=== PATIENT | male | born 1980 | race Caucasian/White ===

== ENCOUNTER 2020-01-22 20:40 | Outpatient (REF) | payer MEDICAID, SELFPAY ==
[2020-01-22 20:24] LABS: Calculated LDL 90 mg/dL (<100); Cholesterol 154 mg/dL (<200); HDL Cholesterol 50 mg/dL (40-60); TSH (W/Ref FT4) 0.61 uIU/mL (0.36-3.74); Triglyceride 70 mg/dL (<150)
[2020-01-22 20:25] LABS: Hemoglobin A1C 5.5 % (3.8-5.6)
[2020-01-24 09:34] LABS: Hepatitis B Surface Ag Negative (Negative)
[2020-01-24 09:54] LABS: Hepatitis C Ab w Rflx HCV PCR Reactive (Negative)
[2020-01-24 10:43] LABS: HIV-1/2 Ag & Ab Screen Negative (Negative)
[2020-01-27 14:51] LABS: HCV RNA Detection Quantitative 204 IU/mL (Undetected); HCV RNA Qualitative Detected (Undetected)
== END 2020-01-22 21:00 ==
LOC: NCHCN 20:40
PROVIDERS: PCP General Practice; Visit Provider Family Medicine
DX: Z86.39 Personal history of other endocrine, nutritional and metabolic disease (principal); Z11.59 Encounter for screening for other viral diseases; Z11.4 Encounter for screening for human immunodeficiency virus [HIV]; Z13.1 Encounter for screening for diabetes mellitus; Z13.220 Encounter for screening for lipoid disorders
CPT/HCPCS: 80061; 86803; 87340; 87389; 87522; 83036; 84443

== ENCOUNTER 2020-03-11 17:46 | Outpatient (REF) | payer MEDICAID, SELFPAY ==
[2020-03-11 18:54] LABS: HCT 41.1 % (40.0-50.0); HGB 13.4 g/dL (13.5-17.5); Mean Corp. HGB Concentration 32.6 g/dL (32.0-36.0); Mean Corpuscular Hemoglobin 29.6 pg (27.0-33.0); Mean Corpuscular Volume 90.9 fL (80-95); Mean Platelet Volume 11.8 fL (8.0-11.0); Platelet Count 203 x1000/uL (130-400); RBC 4.52 m/cumm (4.50-6.00); RBC Distribution Width 12.1 % (11.8-14.1)
[2020-03-11 19:12] LABS: ALT 59 U/L (16-63); AST 29 U/L (15-37); Albumin 4.6 g/dL (3.4-5.0); Alkaline Phosphatase 54 U/L (46-116); Anion Gap 8.9 mmol/L (3-11); BUN 12 mg/dL (7-18); Bilirubin, Total 0.2 mg/dL (0.2-1.0); CO2 28.1 mmol/L (21.0-32.0); CREATININE 0.97 mg/dL (0.70-1.30); Calcium 9.5 mg/dL (8.5-10.1); Chloride 102 mmol/L (98-107); Glucose 81 mg/dL (74-106); Potassium 4.2 mmol/L (3.5-5.1); Sodium 139 mmol/L (136-145); Total Protein 7.4 g/dL (6.4-8.2)
[2020-03-13 09:16] LABS: HBs Antibody, Quant 23.3 mIU/mL (See Note); Hepatitis B Surface Ab Positive (See Note)
[2020-03-13 10:19] LABS: Hep B Core Antibody Negative (Negative)
[2020-03-13 10:24] LABS: Hep A Total Ab w Rflx IgM Positive (Negative)
[2020-03-17 11:59] LABS: Hep A Antibody IgM Negative (Negative)
[2020-03-17 22:32] LABS: HCV Genotype 1 (Undetected)
== END 2020-03-11 18:06 ==
LOC: NCHCN 17:46
PROVIDERS: PCP General Practice; Visit Provider Family Medicine
DX: B18.2 Chronic viral hepatitis C (principal)
CPT/HCPCS: 80053; 85027; 86704; 86706; 86709; 87521

== ENCOUNTER 2020-08-05 10:14 | Outpatient (REF) | payer MEDICAID, SELFPAY ==
[2020-08-05 20:04] LABS: ALT 25 U/L (16-63); AST 18 U/L (15-37); Albumin 4.2 g/dL (3.4-5.0); Alkaline Phosphatase 71 U/L (46-116); Bilirubin, Total 0.4 mg/dL (0.2-1.0)
[2020-08-07 13:49] LABS: HCV RNA Qualitative Undetected (Undetected)
== END 2020-08-05 10:34 ==
LOC: NCHCN 10:14
PROVIDERS: PCP General Practice; Visit Provider Family Medicine
DX: B18.2 Chronic viral hepatitis C (principal)
CPT/HCPCS: 80076; 87522

== ENCOUNTER 2020-09-09 16:51 | Outpatient (REF) | payer MEDICAID, SELFPAY ==
[2020-09-11 12:56] LABS: HCV RNA Qualitative Undetected (Undetected)
== END 2020-09-09 17:11 ==
LOC: NCHCN 16:51
PROVIDERS: PCP Family Medicine; Visit Provider Family Medicine
DX: B18.2 Chronic viral hepatitis C (principal)
CPT/HCPCS: 87522

== ENCOUNTER 2021-01-27 20:24 | Outpatient (REF) | payer MEDICAID, SELFPAY ==
[2021-01-28 15:17] LABS: HCV RNA Qualitative Undetected (Undetected)
== END 2021-01-27 20:25 | disposition home or self-care (01) ==
LOC: NCHCN 20:24
PROVIDERS: PCP Family Medicine; Visit Provider Family Medicine
DX: B18.2 Chronic viral hepatitis C (principal)
CPT/HCPCS: 87522

== ENCOUNTER 2022-01-05 12:54 | Outpatient (REF) | payer MEDICAID, SELFPAY ==
[2022-01-12 03:14] LABS: Fentanyl Interpretation Negative.; Fentanyl by LC-MS/MS Negative; Norfentanyl by LC-MS/MS Negative
== END 2022-01-05 12:55 | disposition home or self-care (01) ==
LOC: NCHCN 12:54
PROVIDERS: PCP Family Medicine; Visit Provider Family Medicine
DX: F11.20 Opioid dependence, uncomplicated (principal)
CPT/HCPCS: 80354

== ENCOUNTER 2022-01-19 13:52 | Outpatient (REF) | payer MEDICAID, SELFPAY ==
[2022-01-25 10:17] LABS: Cocaine 143 ng/mL (Cutoff: 50); Cocaine Interpretation Positive.
[2022-01-27 14:39] LABS: Fentanyl Interpretation Negative.; Fentanyl by LC-MS/MS Negative; Norfentanyl by LC-MS/MS Negative
== END 2022-01-19 13:53 | disposition home or self-care (01) ==
LOC: NCHCN 13:52
PROVIDERS: PCP Family Medicine; Visit Provider Family Medicine
DX: F11.20 Opioid dependence, uncomplicated (principal)
CPT/HCPCS: 80353; 80354; 82520

== ENCOUNTER 2023-08-10 15:13 | Outpatient (CLI) | payer MEDICAID, SELFPAY ==
[2023-08-10 12:57] LABS: Abs Immature Grans 0.02 10^3/uL (0.0-0.06); Absolute Basophil Count 0.04 10^3/uL (0.0-0.2); Absolute Eosinophil Count 0.16 10^3/uL (0.0-0.7); Absolute Lymphocyte Count 1.52 10^3/uL (1.2-3.4); Absolute Monocyte Count 0.55 10^3/uL (0.1-0.8); Absolute Neutrophil Count 4.39 10^3/uL (1.2-6.7); Basophils % 0.6; Eosinophils % 2.4; HCT 37.3 % (40.0-50.0); HGB 12.4 g/dL (13.5-17.5); Immature Grans % 0.3; Lymphocytes % 22.8; MCH 28.8 pg (27.0-33.0); MCHC 33.2 % (32.0-36.0); MCV 87 fL (80-95); MPV 10.6 fL (8.0-11.0); Monocytes % 8.2; Neutrophils % 65.7; Platelet Count 240 10^3/uL (130-400); RDW 13.2 % (11.8-14.1); RDW-SD 41.9 fL; WBC 6.68 10^3/uL (4.4-10.8)
[2023-08-10 13:27] LABS: ALT 24 U/L (16-63); AST 14 U/L (15-37); Albumin 3.7 g/dL (3.4-5.0); Alkaline Phosphatase 81 U/L (46-116); Anion Gap 9.5 mmol/L (3-11); BUN 11 mg/dL (7-18); Bilirubin, Total 0.4 mg/dL (0.2-1.0); CO2 28.5 mmol/L (21.0-32.0); CREATININE 0.8 mg/dL (0.70-1.30); Calcium 9.4 mg/dL (8.5-10.1); Chloride 102 mmol/L (98-107); Estimated GFR 114.02 (mL/min/1.73m2); Glucose 107 mg/dL (74-106); Sodium 140 mmol/L (136-145); Total Protein 7.8 g/dL (6.4-8.2)
[2023-08-10 13:45] LABS: *AMPHETAMINES SCREEN URINE Positive (Negative); *BARBITURATES SCREEN URINE Negative (Negative); *BENZODIAZEPINES SCREEN URINE Negative (Negative); Cannabinoids THC Negative (Negative); Cocaine Screen,Urine Positive (Negative); METHADONE URINE SCREEN Negative (Negative); OPIATES URINE SCREEN Negative (Negative); Tricyclic Antidepressants Negative (Negative)
[2023-08-10 22:55] LABS: Hepatitis B Surface Ag Negative (Negative)
[2023-08-11 08:52] LABS: HBs Antibody, Quant 26.5 mIU/mL (See Note); Hepatitis B Surface Ab Positive (See Note)
[2023-08-11 09:36] LABS: HIV-1/2 Ag & Ab Screen Negative (Negative)
[2023-08-11 09:44] LABS: Hep B Core Antibody Negative (Negative)
[2023-08-11 09:55] LABS: Hep A Total Ab w Rflx IgM Positive (Negative)
[2023-08-11 11:03] LABS: Hep A Antibody IgM Negative (Negative)
[2023-08-11 11:16] LABS: Hepatitis C Ab w Rflx HCV PCR Reactive (Negative)
[2023-08-11 14:13] LABS: Chlamydia Result Negative (Negative); GC Result Negative (Negative)
[2023-08-14 10:24] LABS: HCV RNA Detection Quantitative 141 IU/mL (Undetected); HCV RNA Qualitative Detected (Undetected)
[2023-08-14 12:27] LABS: TB Interpretation Negative (Negative); TB1 Ag minus Nil 0.02 IU/ml; TB2 Ag minus Nil 0.03 IU/mL
[2023-08-14 13:59] LABS: Syphilis IgG w/Reflex Nonreactive (Nonreactive)
[2023-08-15 12:58] LABS: 2-OH-Ethyl-Flurazepam Negative ng/mL (Cutoff: 10); 7-NH-Clonazepam Negative ng/mL (Cutoff: 10); 7-NH-Flunitrazepam Negative ng/mL (Cutoff: 10); Alpha OH-Alprazolam Negative ng/mL (Cutoff: 10); Alpha-OH Midazolam Negative ng/mL (Cutoff: 10); Alpha-OH-Triazolam Negative ng/mL (Cutoff: 10); Alprazolam Negative ng/mL (Cutoff: 10); Benzodiazepines Interpretation Negative.; Chlordiazepoxide Negative ng/mL (Cutoff: 10); Clobazam Negative ng/mL (Cutoff: 10); Clonazepam Negative ng/mL (Cutoff: 10); Diazepam Negative ng/mL (Cutoff: 10); Flurazepam Negative ng/mL (Cutoff: 10); Lorazepam Negative ng/mL (Cutoff: 10); Midazolam Negative ng/mL (Cutoff: 10); N-Desmethylclobazam Negative ng/mL (Cutoff: 10); Prazepam Negative ng/mL (Cutoff: 10); Temazepam Negative ng/mL (Cutoff: 10); Triazolam Negative ng/mL (Cutoff: 10); Zolpidem Carboxylic acid Negative ng/mL (Cutoff: 10)
[2023-08-15 14:19] LABS: Fentanyl Interpretation Positive.
== END 2023-08-10 15:14 | disposition home or self-care (01) ==
LOC: LBO 15:14
PROVIDERS: PCP Family Medicine
DX: F11.20 Opioid dependence, uncomplicated (principal); Z72.89 Other problems related to lifestyle; Z11.4 Encounter for screening for human immunodeficiency virus [HIV]; Z11.59 Encounter for screening for other viral diseases; B15.9 Hepatitis A without hepatic coma
CPT/HCPCS: 36415; 80053; 80307; 86704; 86706; 86709; 86803; 87340; 87389; 87491; 87522; 87591; 80346; 80354; 85025; 86480; 86780